=== PATIENT | male | born 1995 | race Caucasian/White ===

== ENCOUNTER 2018-05-30 01:09 | Emergency (ER) | payer SELFPAY ==
[~2018-05-30] VITALS: Ht 182.9 cm; Wt 72.7 kg
[2018-05-30] MEDS ORDERED: FLEXERIL PO (03:17)
[2018-05-30] MEDS ORDERED: NAPROSYN500 MG PO (03:17)
[2018-05-30 03:40] VITALS: BP 119/79
== END 2018-05-30 03:41 | disposition home or self-care (01) | DRG 552 ==
LOC: ED 01:09
DX: M54.41 Lumbago with sciatica, right side (principal)